=== PATIENT | male | born 1990 | race Caucasian/White ===

== ENCOUNTER 2022-09-11 15:50 | Emergency (ER) | payer OTHER ==
[~2022-09-11] VITALS: Ht 175 cm; Wt 123.0 kg
[2022-09-11] MEDS ORDERED: TAMSULOSIN 0.4 MG (FLOMAX) CAP PO STA (15:59)
[2022-09-11] MEDS ORDERED: morphine INJ 10 MG/ML 1ML (SYR OR VIAL) IVP STA ×2 (15:59→16:49)
--- NOTE | 2022-09-11 15:59 | ED Abdominal Pain ---
General Stated Complaint: BACK PAIN; LRQ PAIN Source of Information: Patient Exam Limitations: No Limitations History of Present Illness Date Seen by Provider: Sep 11, 2022 Time Seen by Provider: 15:52 Initial Comments 31-year-old male with no pertinent past medical history coming in due to right flank pain that started roughly an hour ago, severe, sharp, radiates to his right groin. Never had pain like this before, seems constant. No vomiting. No fever. Denies any dysuria or hematuria that he knows of. Has not taken any medicines for it as of yet. Allergies and Home Medications Allergies Coded Allergies: No Known Drug Allergies (Unverified , 09/11/22) Patient Home Medication List Home Medication List Reviewed: Yes Ketorolac Tromethamine (Ketorolac Tromethamine) 10 Mg Tablet, 10 MG PO Q8H Prescribed by: JH BROWN on 09/11/22 164 Ondansetron (Ondansetron Odt) 4 Mg Tab.rapdis, 4 MG SL Q6H PRN for NAUSEA/VOMITING Prescribed by: JH BROWN on 09/11/22 164 Oxycodone HCl (Oxycodone HCl) 5 Mg Tablet, 5 MG PO Q6H PRN for PAIN-SEVERE (8- 10) Prescribed by: JH BROWN on 09/11/22 164 Tamsulosin HCl (Flomax) 0.4 Mg Cap, 0.4 MG PO DAILY Prescribed by: JH BROWN on 09/11/22 1645 Review of Systems Review of Systems Constitutional: No fever EENTM: No Symptoms Reported Respiratory: No Symptoms Reported Cardiovascular: No Symptoms Reported Gastrointestinal: See HPI Genitourinary: See HPI Musculoskeletal: no symptoms reported Skin: no symptoms reported Psychiatric/Neurological: No Symptoms Reported Endocrine: No Symptoms Reported Hematologic/Lymphatic: No Symptoms Reported All Other Systems Reviewed Negative Unless Noted: Yes Past Bharxpo-Ttajdn-Ifcpzf Hx Patient Social History Substance use?: No Past Medical History Surgeries: No Physical Exam Vital Signs Vital Signs - First Documented 09/11/22 16:20 Temp 35.6 Pulse 76 Resp 20 B/P (MAP) 170/93 (118) Pulse Ox 100 O2 Delivery Room Air Capillary Refill : Height/Weight/BMI Height: '" Weight: lbs. oz. kg; BMI Method: General Appearance: WD/WN, mild distress HEENT: PERRL/EOMI, normal ENT inspection, pharynx normal Neck: non-tender, full range of motion, supple, normal inspection Respiratory: chest non-tender, lungs clear, normal breath sounds, no respiratory distress, no accessory muscle use Cardiovascular: regular rate, rhythm, no edema, no murmur Gastrointestinal: normal bowel sounds, non tender, soft; No distended, No guarding, No rebound Extremities: normal range of motion, non-tender, normal inspection, no pedal edema, no calf tenderness, normal capillary refill Back: normal inspection, no vertebral tenderness, CVA tenderness (R) Neurologic/Psychiatric: no motor/sensory deficits, alert, normal mood/affect Skin: normal color, warm/dry Lymphatic: no adenopathy Progress/Results/Core Measures Results/Orders Lab Results Laboratory Tests Test 09/11/22 16:00 09/11/22 16:25 Range/Units White Blood Count 11.1 H 4.3-11.0 10^3/uL Red Blood Count 5.51 4.30-5.52 10^6/uL Hemoglobin 15.2 13.3-17.7 g/dL Hematocrit 46 40-54 % Mean Corpuscular Volume 83 80-99 fL Mean Corpuscular Hemoglobin 28 25-34 pg Mean Corpuscular Hemoglobin Concent 33 32-36 g/dL Red Cell Distribution Width 12.8 10.0-14.5 % Platelet Count 289 130-400 10^3/uL Mean Platelet Volume 9.5 9.0-12.2 fL Immature Granulocyte % (Auto) 0 % Neutrophils (%) (Auto) 45 42-75 % Lymphocytes (%) (Auto) 39 12-44 % Monocytes (%) (Auto) 13 H 0-12 % Eosinophils (%) (Auto) 2 0-10 % Basophils (%) (Auto) 1 0-10 % Neutrophils # (Auto) 5.0 1.8-7.8 10^3/uL Lymphocytes # (Auto) 4.3 H 1.0-4.0 10^3/uL Monocytes # (Auto) 1.4 H 0.0-1.0 10^3/uL Eosinophils # (Auto) 0.3 0.0-0.3 10^3/uL Basophils # (Auto) 0.1 0.0-0.1 10^3/uL Immature Granulocyte # (Auto) 0.0 0.0-0.1 10^3/uL Sodium Level 139 135-145 MMOL/L Potassium Level 4.7 3.6-5.0 MMOL/L Chloride Level 103 98-107 MMOL/L Carbon Dioxide Level 24 21-32 MMOL/L Anion Gap 12 5-14 MMOL/L Blood Urea Nitrogen 14 7-18 MG/DL Creatinine 1.66 H 0.60-1.30 MG/DL Estimat Glomerular Filtration Rate 56 BUN/Creatinine Ratio 8 Glucose Level 109 H 70-105 MG/DL Calcium Level 9.1 8.5-10.1 MG/DL Corrected Calcium 8.9 8.5-10.1 MG/DL Total Bilirubin 0.2 0.1-1.0 MG/DL Aspartate Amino Transf (AST/SGOT) 36 H 5-34 U/L Alanine Aminotransferase (ALT/SGPT) 58 H 0-55 U/L Alkaline Phosphatase 92 40-136 U/L Total Protein 6.9 6.4-8.2 GM/DL Albumin 4.2 3.2-4.5 GM/DL Lipase 30 8-78 U/L Urine Color YELLOW Urine Clarity CLEAR Urine pH 7.5 5-9 Urine Specific [place] 1.020 1.016-1.022 Urine Protein NEGATIVE NEGATIVE Urine Glucose (UA) NEGATIVE NEGATIVE Urine Ketones NEGATIVE NEGATIVE Urine Nitrite NEGATIVE NEGATIVE Urine Bilirubin NEGATIVE NEGATIVE Urine Urobilinogen 1.0 < = 1.0 MG/DL Urine Leukocyte Esterase NEGATIVE NEGATIVE Urine RBC (Auto) 3+ H NEGATIVE Urine RBC TNTC H /HPF Urine WBC NONE /HPF Urine Squamous Epithelial Cells 2-5 /HPF Urine Crystals NONE /LPF Urine Bacteria FEW H /HPF Urine Casts NONE /LPF Urine Mucus MODERATE H /LPF Urine Culture Indicated YES My Orders Orders - JH BROWN MD Ua Culture If Indicated (09/11/22 15:54) Ct Abdomen/Pelvis Wo (09/11/22 15:59) Cbc With Automated Diff (09/11/22 15:59) Comprehensive Metabolic Panel (09/11/22 15:59) Lipase (09/11/22 15:59) Morphine Injection (Morphine Injection (09/11/22 15:59) Ketorolac Injection (Toradol Injection) (09/11/22 16:00) Ondansetron Injection (Zofran Injectio (09/11/22 16:00) Tamsulosin Capsule (Flomax Capsule) (09/11/22 15:59) Urine Culture (09/11/22 16:25) Medications Given in ED Current Medications Medications Dose Ordered Sig/Mary Route Start Time Stop Time Status Last Admin Dose Admin Ketorolac Tromethamine 15 mg ONCE ONCE IVP 09/11/22 16:00 09/11/22 16:02 DC 09/11/22 16:15 15 MG Ondansetron HCl 4 mg ONCE ONCE IVP 09/11/22 16:00 09/11/22 16:02 DC 09/11/22 16:15 4 MG Vital Signs/I&O 09/11/22 16:20 Temp 35.6 Pulse 76 Resp 20 B/P (MAP) 170/93 (118) Pulse Ox 100 O2 Delivery Room Air Progress Progress Note : Progress Note 31-year-old male with above history coming in due to right flank pain radiating to his right groin. ABCs were intact and vitals were stable on presentation. Physical exam with right flank tenderness but no abdominal tenderness. CT abdomen pelvis without contrast ordered consistent with a 2 mm obstructing stone on the right with mild hydronephrosis. An IV was placed and the patient was given morphine for pain as well as Toradol and Zofran. Symptoms significantly improved. I will have him follow-up with urology as an outpatient with a trial of passage. Diagnostic Imaging Diagonstic Imaging: CT (abd/pelv) Comments NAME: [facility] REC#: [id number] PT STATUS: REG ER : 1990 PHYSICIAN: JH BROWN MD ADMIT DATE: 09/11/22/ER FS Draft Date of Exam:09/11/22 CT ABDOMEN/PELVIS WO EXAMINATION: CT abdomen and pelvis without contrast. TECHNIQUE: Multiple contiguous axial images were obtained through the abdomen and pelvis without the use of intravenous contrast. All CT scans use one or more of the following dose optimizing techniques: automated exposure control, MA and/or KvP adjustment based on patient size and exam type or iterative reconstruction. HISTORY: Right flank pain. COMPARISON: None available. FINDINGS: Limited views of the lower thorax are unremarkable. Liver is mildly steatotic. No focal liver lesions are seen. There is no biliary ductal dilation. Gallbladder is normal. Pancreas is normal. Spleen is normal. Adrenal glands are normal. There is a 2 mm stone in the right distal ureter with mild right-sided hydroureteronephrosis. No suspicious renal lesions. Urinary bladder is normal. Bowel is normal in caliber without obstruction or inflammation. The appendix is normal. No free fluid or air. No abdominal or pelvic lymphadenopathy. Aorta is normal in caliber without aneurysm. There are no suspicious osseus lesions. IMPRESSION: Right distal ureteral 2 mm stone with mild right-sided hydroureteronephrosis. Dictated on workstation # [id number] Dict: 09/11/22 1625 Trans: 09/11/221628 [facility] [id number] Interpreted by: COLLEEN SHEPARD MD Electronically signed by: Departure Impression Primary Impression: Ureterolithiasis Disposition: 01 HOME, SELF-CARE Condition: Stable Departure-Patient Inst. Decision time for Depature: 16:35 Referrals: NO,LOCAL PHYSICIAN (PCP/Family) Primary Care Physician Patient Instructions: Kidney Stone, Adult ED Add. Discharge Instructions: You are passing a 2 mm kidney stone on the right. This has a really good chance to pass by itself. Follow-up with the urologist of your choosing. If you do not have a urologist, you can always follow-up with Dr. Roman in [place]. Pain medicine and nausea medicine was sent to your pharmacy. Do not mix ibuprofen or naproxen with it. You can take Tylenol. Once you run out of the ketorolac, you can substitute it for ibuprofen 600 mg every 6 hours. You should also take tamsulosin daily to try to help the stone to pass easier. Sometimes stones can take a couple weeks to pass, so follow-up with the urologist as soon as possible. Your urine also had some bacteria in it, we will start you on an antibiotic as well. Scripts Sulfamethoxazole/Trimethoprim (Bactrim Ds Tablet) 1 Each Tablet 1 EACH PO BID for 5 Days, #10 TAB Prov: JH BROWN MD 09/11/22 Ondansetron (Ondansetron Odt) 4 Mg Tab.rapdis 4 MG SL Q6H PRN for NAUSEA/VOMITING for 5 Days, #20 TAB Prov: JH BROWN MD 09/11/22 Tamsulosin HCl (Flomax) 0.4 Mg Cap 0.4 MG PO DAILY for 14 Days, #14 CAP Prov: JH BROWN MD 09/11/22 Ketorolac Tromethamine (Ketorolac Tromethamine) 10 Mg Tablet 10 MG PO Q8H for 4 Days, #12 TAB Prov: JH BROWN MD 09/11/22 Oxycodone HCl (Oxycodone HCl) 5 Mg Tablet 5 MG PO Q6H PRN for PAIN-SEVERE (8-10) for 4 Days, #16 TAB Prov: JH BROWN MD 09/11/22 Work/School Note: Work Release Form Date Seen in the Emergency Department: Sep 11, 2022 Return to Work: Sep 14, 2022 Restrictions: No Restrictions Other Restrictions Listed Below: No heavy machinery if taking pain medicine JH BROWN MD Sep 11, 2022 15:59
[2022-09-11] MEDS ORDERED: KETOROLAC 30 MG/ML VIAL IVP ONE (16:00)
[2022-09-11] MEDS ORDERED: ONDANSETRON 4 MG/2 ML (SDV) Z0FRAN IVP ONE (16:00)
[2022-09-11 16:08] LABS: BASOPHILS # (AUTO) 0.1 10^3/uL (0.0-0.1); BASOPHILS % (AUTO) 1 % (0-10); EOSINOPHILS # (AUTO) 0.3 10^3/uL (0.0-0.3); EOSINOPHILS % (AUTO) 2 % (0-10); HEMATOCRIT 46 % (40-54); HEMOGLOBIN 15.2 g/dL (13.3-17.7); LYMPHOCYTES # (AUTO) 4.3 10^3/uL (1.0-4.0); LYMPHOCYTES % (AUTO) 39 % (12-44); MEAN CORPUSCULAR HEMOGLOBIN 28 pg (25-34); MEAN CORPUSCULAR HGB CONC 33 g/dL (32-36); MEAN CORPUSCULAR VOLUME 83 fL (80-99); MEAN PLATELET VOLUME 9.5 fL (9.0-12.2); MONOCYTES # (AUTO) 1.4 10^3/uL (0.0-1.0); MONOCYTES % (AUTO) 13 % (0-12); NEUTROPHILS % (AUTO) 45 % (42-75); PLATELET COUNT 289 10^3/uL (130-400); WHITE BLOOD COUNT 11.1 10^3/uL (4.3-11.0)
[2022-09-11 16:20] VITALS: BP 170/93
--- NOTE | 2022-09-11 16:29 | Diagnostic Imaging Report ---
EXAMINATION: CT abdomen and pelvis without contrast. TECHNIQUE: Multiple contiguous axial images were obtained through the abdomen and pelvis without the use of intravenous contrast. All CT scans use one or more of the following dose optimizing techniques: automated exposure control, MA and/or KvP adjustment based on patient size and exam type or iterative reconstruction. HISTORY: Right flank pain. COMPARISON: None available. FINDINGS: Limited views of the lower thorax are unremarkable. Liver is mildly steatotic. No focal liver lesions are seen. There is no biliary ductal dilation. Gallbladder is normal. Pancreas is normal. Spleen is normal. Adrenal glands are normal. There is a 2 mm stone in the right distal ureter with mild right-sided hydroureteronephrosis. No suspicious renal lesions. Urinary bladder is normal. Bowel is normal in caliber without obstruction or inflammation. The appendix is normal. No free fluid or air. No abdominal or pelvic lymphadenopathy. Aorta is normal in caliber without aneurysm. There are no suspicious osseus lesions. IMPRESSION: Right distal ureteral 2 mm stone with mild right-sided hydroureteronephrosis. Dictated by: Dictated on workstation # [id number]
[2022-09-11 16:32] LABS: BILIRUBIN,URINE NEGATIVE (NEGATIVE); CLARITY,URINE CLEAR; COLOR,URINE YELLOW; GLUCOSE, URINE (UA) NEGATIVE (NEGATIVE); KETONES,URINE NEGATIVE (NEGATIVE); LEUKOCYTE ESTERASE ,URINE NEGATIVE (NEGATIVE); NITRITE,URINE NEGATIVE (NEGATIVE); PH,URINE 7.5 (5-9); PROTEIN,URINE NEGATIVE (NEGATIVE)
[2022-09-11 16:32] LABS: BILIRUBIN,TOTAL 0.2 MG/DL (0.1-1.0); CALCIUM 9.1 MG/DL (8.5-10.1); CREATININE SERUM 1.66 MG/DL (0.60-1.30); POTASSIUM 4.7 MMOL/L (3.6-5.0)
[2022-09-11 16:33] LABS: ALBUMIN 4.2 GM/DL (3.2-4.5); TOTAL PROTEIN 6.9 GM/DL (6.4-8.2)
[2022-09-11 16:35] LABS: BACTERIA,URINE FEW /HPF; RBC,URINE TNTC /HPF
[2022-09-11] MEDS ORDERED: TMSL.4C PO (16:45)
[2022-09-11] MEDS ORDERED: OXYC5TAB PO (16:45)
[2022-09-11] MEDS ORDERED: KETO10TA PO (16:45)
[2022-09-11] MEDS ORDERED: ONDA4TAB11 SL (16:45)
[2022-09-11] MEDS ORDERED: SULF1TAB38 PO (16:48)
== END 2022-09-11 16:55 | disposition home or self-care (01) ==
LOC: EDUNIT# 15:50 → ER FS 15:52
DX: N13.2 Hydronephrosis with renal and ureteral calculous obstruction (principal)
CPT/HCPCS: 36415; 74176; 80053; 81000; 83690; 85025; 87088